=== PATIENT | male | born 1980 | race Caucasian/White ===

== ENCOUNTER 2017-09-26 22:35 | Emergency (ER) | payer OTHER ==
[2017-09-26] MEDS ORDERED: Tetan/Diph/Pertus SYR(Tdap)* 0.5 ML SYR(BOOSTRIX) use SYR IM ONE (23:36)
[2017-09-26] MEDS ORDERED: Lidocaine 1%* 5 ML VIAL INJ ONE (23:37)
[2017-09-26] MEDS ORDERED: Lidocaine 2% EPI 1:200000 MPF* 20 ML VIAL ONE (23:38)
[2017-09-27] MEDS ORDERED: Ibuprofen TAB* 600 MG PO ONE (00:15)
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
[2017-09-27 00:30] VITALS: BP 129/77
== END 2017-09-27 00:25 | disposition home or self-care (01) ==
LOC: ED 22:35
DX: S01.81XA Laceration without foreign body of other part of head, initial encounter (principal); X78.1XXA Intentional self-harm by knife, initial encounter; Y92.149 Unspecified place in prison as the place of occurrence of the external cause; Z87.891 Personal history of nicotine dependence
CPT/HCPCS: 12011; 99283